=== PATIENT | male | born 1960 | race Two or more races ===

== ENCOUNTER 2025-08-28 09:30 | Day surgery (SDC) | payer MEDICAID, SELFPAY ==
--- NOTE | 2025-08-22 07:02 | EKG_ITS ---
[facility] Test Date: 2025-08-22 Pat Name: ANGEL MURPHY Department: Room: - Gender: Male [employer]: STEVIE : 1960 Requested By: Hannah Ash Order Number: [id number] Reading MD: Hannah Ash Measurements Intervals [place] Rate: 54 P: 47 AR: 124 QRS: 35 QRSD: 90 T: 16 QT: 436 QTc: 415 Interpretive Statements SINUS BRADYCARDIA No previous ECG available for comparison /store/S0/[id number]
[2025-08-22 10:17] VITALS: BMI 28.7
[2025-08-22 12:23] LABS: Basophils # (Auto) 0.1 Thou/mm3 (0.0-0.2); Basophils % (Auto) 2 % (0-2.5); Eosinophils # (Auto) 0.3 Thou/mm3 (0.0-0.5); Eosinophils % (Auto) 5 % (0-10); Hematocrit 43.8 % (41.0-53.0); Hemoglobin 14.6 g/dL (13.5-16.0); Immature Granulocytes Auto 0.02 Thou/mm3 (0.00-0.00); Lymphocytes # (Auto) 2.1 Thou/mm3 (1.0-4.8); Lymphocytes % (Auto) 36 % (10-50); Mean Corpuscular HGB Conc 33.3 g/dl (31.0-37.0); Mean Corpuscular Hemoglobin 31.4 pg (25.0-35.0); Mean Corpuscular Volume 94 fL (80-100); Monocytes # (Auto) 0.6 Thou/mm3 (0.0-0.8); Monocytes % (Auto) 10 % (0-12); Neutrophils # (Auto) 2.8 Thou/mm3 (1.8-7.7); Neutrophils % (Auto) 47 % (37-80); Nucleated Red Blood Cell # 0.00 Thou/mm3 (0.00-0.00); Nucleated Red Blood Cell % 0 /100 WBC (0); Platelet Count 201 Thou/mm3 (140-440); RDW Standard Deviation 42.2 fL (35.1-43.9); Red Blood Count 4.65 Miln/mm3 (4.50-5.90); White Blood Count 5.9 Thou/mm3 (3.8-10.6)
[2025-08-22 12:36] LABS: Alanine Aminotransferase 27 U/L (10-49); Albumin, Serum 4.8 gm/dL (3.4-4.8); Albumin/Globulin Ratio 2.1 (1.2-2.2); Alkaline Phosphatase 61 U/L (46-116); Anion Gap 10 (7-16); Aspartate Amino Transferase 30 U/L (0-34); BUN/Creatinine Ratio 15 Ratio (12-20); Bilirubin,Total 0.8 mg/dL (0.3-1.2); Blood Urea Nitrogen 15 mg/dL (9-23); Calcium 9.5 mg/dL (8.3-10.6); Calcium (Corrected) 9.5 mg/dL (8.5-10.1); Carbon Dioxide 27.4 mMol/L (20.0-31.0); Chloride 103 mMol/L (98-107); Creatinine (Component) 1.0 mg/dL (0.6-1.3); Estimated Creatinine Clearance 83.1 mL/min (>60); Globulin 2.3 gm/dL (2.3-3.5); Glucose 107 mg/dL (74-106); Osmolality,Calculated 280 (275-295); Potassium 4.3 mMol/L (3.4-5.1); Sodium 140 mMol/L (136-145); Total Protein 7.1 gm/dL (5.7-8.2); eGFR > 60 See Note
[2025-08-28] VITALS (9 sets, daily range): BP systolic 99–127; BP diastolic 62–77; PULSE 60–67; RESP 13–21; TEMP 36.4–36.6; O2SAT 96–100; BMI 27.9
--- NOTE | 2025-08-28 12:19 | PD.SUROPNT ---
Date of Procedure 08/28/25 Pre Op Diagnosis Incarcerated umbilical hernia Post Op Diagnosis Incarcerated umbilical hernia Procedure Laparoscopy with primary repair of incarcerated umbilical hernia Findings An approximately 1 cm umbilical hernia defect with incarcerated preperitoneal fat Procedure Description Patient brought into the operating room in supine position. After administration of general orotracheal anesthesia, patient's abdomen prepped and draped in standard surgical manner. A 5 mm incision was made in left upper quadrant and Veress needle was inserted, pneumoperitoneum was obtained to 15 mmHg. The Veress needle was removed and a 5 mm trocar was placed. Laparoscopic camera was inserted. The abdomen was inspected, patient was noted to have a small umbilical hernia with incarcerated preperitoneal fat. There was no evidence of omental incarceration. There were no other ventral or abdominal wall hernia defects noted. Laparoscopic camera was removed, pneumoperitoneum was evacuated and trocar was removed. After administration of local anesthesia 3 cm semicircular incision was made above the umbilicus and dissection was deepened into soft tissue. The hernia sac was circumferentially dissected out surrounding tissue. The sac was opened, the sac along with incarcerated preperitoneal fat were excised. The defect was approximately 1 cm diameter. The defect was primarily closed with interrupted sutures using 0 Ethibond. Hemostasis was adequate and satisfactory. Soft tissue reapproximated with interrupted sutures using 2-0 Vicryl. The incisions closed with 4-0 Monocryl in subcuticular fashion. Dermabond applied. Instruments, needles and sponge counts were reported to be correct ?2 patient tolerated the procedure well. Patient was extubated, breathing spontaneously and without difficulty and was transferred to postanesthesia care in stable condition. Anesthesia GETA and local Pathology / specimen Other (Hernia sac and contents) Estimated Blood Loss 2 Condition Stable Disposition PACU Surgeon Hannah Ash MD Surgical Staff Operation Date: 08/28/25 11:30 Case Staff Anesthesiologist: Jeffrey Bustamante RN First Assistant: Maritza Montanez
--- NOTE | 2025-08-28 12:43 | SUR.PHASEI ---
1214: Pt received in [facility] via gurney. Report from Violetet APODACA and Dr. Rolle. Pt obtunded. Resp even, unlabored. VS stable. Surgical sites x2 to abdomen secured with dermabond with no swelling, discoloration. 1240: Pt has been resting with no complaints voiced. Is more awake at this time. Resp even, unlabored. VS stable. Surgical sites to abdomen remain dry, clean, intact with no swelling, discoloration. Denies pain.
--- NOTE | 2025-08-28 13:00 | SUR.PHASEII ---
1250: Pt more awake, alert. VS stable. Surgical sites unchanged. Denies pain. Sitting up tolerating po fluids with no difficulty swallowing and no n/v.
--- NOTE | 2025-08-28 13:32 | SUR.PHASEII ---
1304: pt awake, alert, able to follow commands, breathing unlabored, VS stable, report from Lisa RN 1332: pt awake, alert, able to follow commands, breathing unlabored, VS stable, pt able to dress self and ambulate with steady gait to wheelchair, discharge instructions given with spouse present using certified translator and interpreter Isatu, all questions answered, pt discharged via wheelchair with all belongings and copies of discharge paperwork.
== END 2025-08-28 13:32 | disposition home or self-care (01) ==
PROVIDERS: Anesthesiology; PCP Physician Assistant Medical; Referring Provider Surgery; Visit Provider Surgery
PROC: 0WQF4ZZ Repair Abdominal Wall, Percutaneous Endoscopic Approach (ICD-10-PCS; CPT 49592; principal; 2025-08-28 11:15)
DX: K42.0 Umbilical hernia with obstruction, without gangrene (principal); Z01.810 Encounter for preprocedural cardiovascular examination; F32.A Depression, unspecified
CPT/HCPCS: 49592; 36415; 80053; 85025; 93005; A4649; J0131; J0690; J1100; J1885; J2250; J2405; J2704; J3010; J3490